=== PATIENT | male | born 1975 | race Two or more races ===

== ENCOUNTER 2018-11-19 09:21 | Emergency (ER) | payer SELFPAY ==
[2018-11-19] VITALS (16 sets, daily range): BP systolic 108–149; BP diastolic 68–98
[~2018-11-19] VITALS: Ht 188 cm; Wt 95.3 kg
--- NOTE | 2018-11-19 09:26 | NUR ---
ED Nurse Note: Pt was picked up by [facility] in front of his house after having ALOC after smoking marijuana laced with psychadelics. Hx of bipolar and schizophrenia. A + O x1. Skin warm to touch. Pt refuses to speak to anyone at the moment. And refused to walk to bed from [facility]. Pt has a flat affect.
[2018-11-19 10:02] LABS: BASOPHILS % (AUTO) 0.5 % (0.0-2.0); EOSINOPHILS % (AUTO) 0.1 % (0.0-3.0); HEMATOCRIT 53.1 % (42.0-52.0); HEMOGLOBIN 17.4 G/DL (14.2-18.0); LYMPHOCYTES % (AUTO) 14.5 % (20.0-45.0); MEAN CORPUSCULAR VOLUME 82 FL (80-99); MONOCYTES % (AUTO) 7.8 % (1.0-10.0); PLATELET COUNT 206 K/UL (150-450); RED BLOOD COUNT 6.46 M/UL (4.70-6.10); RED CELL DISTRIBUTION WIDTH 13.5 % (11.6-14.8); WHITE BLOOD COUNT 7.2 K/UL (4.8-10.8)
[2018-11-19 10:15] LABS: ANION GAP 13 mmol/L (5-15); BLOOD UREA NITROGEN 17 mg/dL (7-18); CALCIUM 9.2 MG/DL (8.5-10.1); CARBON DIOXIDE 22 MMOL/L (21-32); CHLORIDE 104 MMOL/L (98-107); CREATININE 1.4 MG/DL (0.55-1.30); POTASSIUM 3.8 MMOL/L (3.5-5.1); SODIUM 139 MMOL/L (136-145)
[2018-11-19 10:27] LABS: ALANINE AMINOTRANSFERASE 57 U/L (12-78); ALBUMIN 3.9 G/DL (3.4-5.0); ALKALINE PHOSPHATASE 87 U/L (46-116); ASPARTATE AMINO TRANSFERASE 24 U/L (15-37); BILIRUBIN,TOTAL 0.5 MG/DL (0.2-1.0); CREATINE KINASE 416 U/L (26-308)
--- NOTE | 2018-11-19 10:40 | NUR ---
ED Nurse Note: Notified pt of urine collection needed. Waiting for pt.
--- NOTE | 2018-11-19 12:01 | NUR ---
ED Nurse Note: Urine has been collected and sent to lab.
--- NOTE | 2018-11-19 12:51 | Emergency Room Report ---
History of Present Illness General Chief Complaint: General Complaint Source: EMS (Mitchell Gomez MD) Present Illness HPI Patient presents with a questionable overdose. He's got decreased mentation. Paramedics transported patient here. Accu-Chek was normal. The patient feels that he is depressed at this time but doesn't say he is suicidal. He will not say when he took before. (Mitchell Gomez MD) Allergies: Coded Allergies: No Known Allergies (Unverified , 11/19/18) Patient History Limited by: medical condition Past Medical History: see triage record Social History: Reports: drug use Reviewed Nursing Documentation: PMH: Agreed; PSxH: Agreed (Mitchell Gomez MD) Nursing Documentation-PMH Past Medical History: No Stated History (Mitchell Gomez MD) Review of Systems All Other Systems: limited (Mitchell Gomez MD) Physical Exam Vital Signs Date Time Temp Pulse Resp B/P (MAP) Pulse Ox O2 Delivery O2 Flow Rate FiO2 11/19/18 09:16 98.1 112 15 134/94 97 Room Air 11/19/18 09:27 98 Sp02 EP Interpretation: reviewed, normal General Appearance: well appearing, no apparent distress, other - GCS 13 - no vocalizing, eyes open, not follow commands. Head: normocephalic Eyes: bilateral eye PERRL, bilateral eye Scleral Injection, bilateral eye other - exopthalmus ENT: moist mucus membranes Neck: supple Respiratory: lungs clear, normal breath sounds Cardiovascular #1: regular rate, rhythm Cardiovascular #2: 2+ radial (R) Gastrointestinal: normal inspection, non tender, no mass, non-distended, decreased bowel sounds Musculoskeletal: back normal, normal range of motion Neurologic: motor strength/tone normal, DTRs symmetric, sensory intact, other - dissociated, but responds to name Skin: normal inspection, warm/dry (Mitchell Gomez MD) Medical Decision Making Medical: Substance Abuse Reaction to Intervention: No change Restraint Reassesment I, Mitchell Gomez MD, have personally evaluated this patient. Laboratory tests have been reviewed and addressed accordingly. The patient is deemed to present a danger to themselves and/or others. This is based on the exam, history ( provided by patient, EMS, lab) and observed behavior. Attempts for non-invasive measures have been considered and/or attempted, however, have been futile. It is in the best interest of the nursing staff, the patient, and others involved in this patient's care that behavioral restraints be applied. Patient evaluation reveals the following: not processing any requests, took out IV, not going back to [facility]. Threats to security. (Mitchell Gomez MD) Diagnostic Impression: Primary Impression: PCP (phencyclidine) abuse Additional Impression: Altered level of consciousness ER Course Patient presents with ALOC with possible drug ingestion. DDx: drug use, electrolyte imbalance, hypoglycemia amongst others. Evaluation with EKG and labs. No imaging indicated at this time. Treatment with cardiac monitoring and IV hydration with repeated evaluations. Labs with mild renal insufficiency, slight elevation CK and tox + for PCP. 13:30 - patient still can't comprehend most instructions. Denies SI. Unable to discharge. I asked him if he had someone who can watch over him. He is not sure. Unable to discharge at this time. Still not processing. Placed on medical hold. Security feel unsafe attempting to redirect patient as not processing requests. [employer] needed to direct patient to [facility]. Restraints and sedation. Signed out to Dr. Hodges. Laboratory Tests Test 11/19/18 09:35 11/19/18 12:00 White Blood Count 7.2 K/UL (4.8-10.8) Red Blood Count 6.46 M/UL (4.70-6.10) H Hemoglobin 17.4 G/DL (14.2-18.0) Hematocrit 53.1 % (42.0-52.0) H Mean Corpuscular Volume 82 FL (80-99) Mean Corpuscular Hemoglobin 26.9 PG (27.0-31.0) L Mean Corpuscular Hemoglobin Concent 32.7 G/DL (32.0-36.0) Red Cell Distribution Width 13.5 % (11.6-14.8) Platelet Count 206 K/UL (150-450) Mean Platelet Volume 8.7 FL (6.5-10.1) Neutrophils (%) (Auto) 77.0 % (45.0-75.0) H Lymphocytes (%) (Auto) 14.5 % (20.0-45.0) L Monocytes (%) (Auto) 7.8 % (1.0-10.0) Eosinophils (%) (Auto) 0.1 % (0.0-3.0) Basophils (%) (Auto) 0.5 % (0.0-2.0) Sodium Level 139 MMOL/L (136-145) Potassium Level 3.8 MMOL/L (3.5-5.1) Chloride Level 104 MMOL/L (98-107) Carbon Dioxide Level 22 MMOL/L (21-32) Anion Gap 13 mmol/L (5-15) Blood Urea Nitrogen 17 mg/dL (7-18) Creatinine 1.4 MG/DL (0.55-1.30) H Estimate Glomerular Filtration Rate 55.3 mL/min (>60) Glucose Level 110 MG/DL (74-106) H Calcium Level 9.2 MG/DL (8.5-10.1) Total Bilirubin 0.5 MG/DL (0.2-1.0) Aspartate Amino Transferase (AST) 24 U/L (15-37) Alanine Aminotransferase (ALT) 57 U/L (12-78) Alkaline Phosphatase 87 U/L (46-116) Total Creatine Kinase 416 U/L (26-308) H Troponin I 0.000 ng/mL (0.000-0.056) Total Protein 7.8 G/DL (6.4-8.2) Albumin 3.9 G/DL (3.4-5.0) Globulin 3.9 g/dL Albumin/Globulin Ratio 1.0 (1.0-2.7) Thyroid Stimulating Hormone (TSH) 0.903 uiU/mL (0.358-3.740) Salicylates Level 4.6 ug/mL (2.8-20) Acetaminophen Level < 2 MCG/ML (10-30) L Serum Alcohol < 3 mg/dL Urine Opiates Screen Negative (NEGATIVE) Urine Barbiturates Screen Negative (NEGATIVE) Phencyclidine (PCP) Screen Positive (NEGATIVE) H Urine Amphetamines Screen Negative (NEGATIVE) Urine Benzodiazepines Screen Negative (NEGATIVE) Urine Cocaine Screen Negative (NEGATIVE) Urine Marijuana (THC) Screen Negative (NEGATIVE) (Mitchell Gomez MD) ER Course Patient signout to me. He presents with altered mental status/psychosis secondary to PCP abuse. He was given Haldol, Benadryl and Ativan. He slept for 6-7 hours. Now he is awake. Said he is not homeless and lives in a house. Said he was to go home. He's walking without a problem. Not suicidal or homicidal. No criteria for 5150. This patient is a chronic risk of self injury due to poor impulse control, limited coping skills, and judgment intermittently impaired by intoxication. I believe that the available clinical evidence to suggest that these characteristics derived primarily from personality disorder and are likely very stable over time. Hospitalization would likely attenuate risk of self-harm only during senior care period, without lasting risk reduction. Serious self-harm , while possible, would likely be inadvertent, and because of impulsivity, and foreseeable. For these reasons, I do not believe hospitalization would provide meaningful reduction in risk of self-harm. (Jose Carreon MD) EKG Diagnostic Results Rate: normal Rhythm: NSR ST Segments: no acute changes (Mitchell Gomez MD) Rhythm Strip Diag. Results EP Interpretation: yes Rhythm: NSR, no PVC's, no ectopy (Mitchell Gomez MD) Status: improved (Mitchell Gomez MD) Status: improved (Jose Carreon MD) Disposition: HOME, SELF-CARE Condition: Stable Referrals: NOT CHOSEN IPA/,REFERRING (PCP) Additional Instructions: Stop using drugs. Follow-up with your DrJose in rehabilitation within 7 days. Return of worse. Mitchell Gomez MD Nov 19, 2018 12:51 Jose Carreon MD Nov 19, 2018 23:04
--- NOTE | 2018-11-19 13:30 | NUR ---
ED Nurse Note: Pt pulled out IV site on right AC. Notified MD. Asked MD if he wanted a new site for maintenance fluids. MD said no dstop maintenance fluids and just give him water po. Carried out orders.
--- NOTE | 2018-11-19 14:40 | NUR ---
ED Nurse Note: Pt was moved to Tx bed 2 in ambulation alone with RN assistance. VS stable, AAO x1-2 and waiting for responsible [employer] party to come and scrap picker.
--- NOTE | 2018-11-19 15:26 | NUR ---
ED Nurse Note: Pt resting in bed in stable condition.
--- NOTE | 2018-11-19 16:00 | NUR ---
ED Nurse Note: Pt got up and removed all his clothing, threw them in trash can, and became combatative with staff. Called security. Pt was offered and assisted to bathroom.
--- NOTE | 2018-11-19 16:23 | NUR ---
ED Nurse Note: PAM arrived, and pt was assisted to asim with behavior restrains due to combatative, danger to self and danger to others. Medications injected and restrains were applied and pt was moved back to his room. Pt moved a lot to be out of restrains and threathen the staff to remove them.
[2018-11-19] MEDS ORDERED: DiphenhydrAMINE 50mg/ml Inj IM ONE (16:30)
[2018-11-19] MEDS ORDERED: LORazepam Inj 2mg/ml 1ml IM ONE (16:30)
[2018-11-19] MEDS ORDERED: Haloperidol 5mg/ml Inj IM ONE (16:30)
--- NOTE | 2018-11-19 16:38 | NUR ---
ED Nurse Note: Performed q15 mins assessment for behavior restrains and unable to obtain VS due to combatative behaviors. Pt is moving and trying to be out of restrains. Skin intact.
--- NOTE | 2018-11-19 16:50 | NUR ---
ED Nurse Note: Pt still being vebally and physically aggressive and combatative. IV hydration on hold. Waiting for the IM medication effective. VS stable pt still moving a lot to be out of restrains. Skin intact.
--- NOTE | 2018-11-19 18:53 | NUR ---
ED Nurse Note: Pt sleeping, skin intact, VS stable. IV hydration order was canceled. No IV line was made.
--- NOTE | 2018-11-19 19:00 | NUR ---
ED Nurse Note: received report from Jaquan VINCENT RN, pt sleeping in bed, arousable to light shake but became combative and confused when awake, attempted to provide pt with toileting and food, pt unable to comprehend, A&ox1. pt fell back asleep, will continue to monitor. CMS intact BLE/BUE, cap refill <3sec.
--- NOTE | 2018-11-19 19:51 | NUR ---
ED Nurse Note: pt sleeping arousable to light shake, restraints d/c per MD order, pt states he is hungry and tired, pt provided with food and drinks, pt fell back asleep, VSS, no injury occured, CMS intact BLE/BUE, skin intact, cap refill <3sec. will continue to monitor.
--- NOTE | 2018-11-19 23:20 | NUR ---
ED Nurse Note: pt left without discharge paperwork nor signing paperwork, pt aa&Ox4, gcs=15, stated he has place to go prior to departure, pt was provided with food and drink before departure and pt left with all belongings. pt was instructed to follow up or return to ED prior to discharge. ERMD notified.
--- NOTE | 2018-11-19 23:22 | NUR ---
ED Nurse Note: pt ambulatory w/ steady gait, pt was provided with shirt prior to departure.
== END 2018-11-19 23:23 | disposition home or self-care (01) ==
LOC: EDBD 09:21 → EMR 09:59
DX: F16.10 Hallucinogen abuse, uncomplicated (principal); R41.82 Altered mental status, unspecified
CPT/HCPCS: 36415; 80053; 80307; 82550; 84443; 84484; 85025; 93005; 96360; 96372; 99284; G0480; J1200; J1630; 80329